=== PATIENT | male | born 1960 | race Caucasian/White ===

== ENCOUNTER 2017-05-23 13:30 | Emergency (ER) | payer OTHER ==
[~2017-05-23] VITALS: Ht 170.2 cm; Wt 72.6 kg
[2017-05-23 13:49] VITALS: BP 106/73
[2017-05-23] MEDS ORDERED: SEROQUEL400 MG ORAL (14:07)
[2017-05-23] MEDS ORDERED: QUEtiapine 200mg tab ORAL ONE (14:15)
--- NOTE | 2017-05-23 15:18 | Emergency Room Report ---
History of Present Illness General Chief Complaint: Behavioral Complaint Source: Patient Present Illness HPI 57-year-old male presents ED complaining of bilateral foot pain. States he has blisters on both of his feet. States that he was at [facility] earlier today and was kicked out. Patient states pain is a 8 and 10, dull, nonradiating, worse with walking. Patient also states he has a psychiatric history he has not taken his Seroquel. Denies suicidal ideation. Denies hearing voices. Patient states he wants to go to a psychiatric facility. No other aggravating factors. Denies any other associated symptoms Allergies: Coded Allergies: No Known Allergies (Unverified , 05/23/17) Patient History Past Medical History: psych hx Past Surgical History: none Pertinent Family History: none Social History: Denies: smoking, alcohol use, drug use Immunizations: UTD Reviewed Nursing Documentation: PMH: Agreed, PSxH: Agreed Nursing Documentation-PMH Past Medical History: No History, Except For History Of Psychiatric Problem: Yes Review of Systems All Other Systems: negative except mentioned in HPI Physical Exam Vital Signs Date Time Temp Pulse Resp B/P (MAP) Pulse Ox O2 Delivery O2 Flow Rate FiO2 05/23/17 13:49 97.5 81 20 106/73 100 Room Air Sp02 EP Interpretation: reviewed, normal General Appearance: no apparent distress, alert, GCS 15, non-toxic Head: normocephalic, atraumatic Eyes: bilateral eye normal inspection, bilateral eye PERRL ENT: hearing grossly normal, normal pharynx, no angioedema, normal voice Neck: full range of motion, supple/symm/no masses Respiratory: chest non-tender, lungs clear, normal breath sounds, speaking full sentences Cardiovascular #1: regular rate, rhythm, no edema Cardiovascular #2: 2+ carotid (R), 2+ carotid (L), 2+ radial (R), 2+ radial (L) , 2+ dorsalis pedis (R), 2+ dorsalis pedis (L) Gastrointestinal: normal bowel sounds, non tender, soft, non-distended, no guarding, no rebound Rectal: deferred Genitourinary: normal inspection, no CVA tenderness Musculoskeletal: back normal, gait/station normal, normal range of motion, non- tender Neurologic: alert, oriented x3, responsive, motor strength/tone normal, sensory intact, speech normal Psychiatric: judgement/insight normal, memory normal, mood/affect normal, no suicidal/homicidal ideation Reflexes: 3+ bicep (R), 3+ bicep (L), 3+ tricep (R), 3+ tricep (L), 3+ knee (R) , 3+ knee (L) Skin: normal color, no rash, warm/dry, well hydrated, other - blisters on bottom of both feet Lymphatic: no adenopathy Medical Decision Making Diagnostic Impression: Primary Impression: Blister of foot Qualified Codes: S90.829A - Blister (nonthermal), unspecified foot, initial encounter Additional Impression: Behavioral change ER Course 57-year-old male presents ED complaining of pain to both feet. Has blisters. States he wants to go to a psychiatric facility Differential-cellulitis, psychosis, blisters Patient placed on stretcher. After initial history and physical I ordered lidocaine jelly and requested for dressings to be applied to both feet. 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 Agrees the patient is not a danger to himself or others. Patient will be given outpatient mental health referral Diagnoses-blisters, behavioral change Stable and discharged to home with Rx Lidocaine Jelly. f/u with psychiatry. return to ED if symptoms recur/worsen Last Vital Signs Date Time Temp Pulse Resp B/P (MAP) Pulse Ox O2 Delivery O2 Flow Rate FiO2 05/23/17 13:49 97.5 81 20 106/73 100 Room Air Status: improved Disposition: HOME, SELF-CARE Condition: Stable Scripts Lidocaine HCL 2% Jelly* (Lidocaine Jelly 2%*) 5 Ml Jel.pf.regina 1 DROP TOPIC DAILY, #5 ML Prov: CRISSY GARNETT M.D. 05/23/17 CRISSY GARNETT M.D. May 23, 2017 15:18
[2017-05-23] MEDS ORDERED: LD2JL30 TOPIC (15:42)
[2017-05-23 16:29] VITALS: BP 112/74
== END 2017-05-23 16:15 | disposition home or self-care (01) ==
LOC: EMR 14:16
DX: S90.822A Blister (nonthermal), left foot, initial encounter (principal); S90.821A Blister (nonthermal), right foot, initial encounter; X58.XXXA Exposure to other specified factors, initial encounter; Y93.9 Activity, unspecified; Y92.9 Unspecified place or not applicable; F68.8 Other specified disorders of adult personality and behavior
CPT/HCPCS: 99284